=== PATIENT | male | born 1975 | race Two or more races ===

== ENCOUNTER 2018-04-24 18:47 | Emergency (ER) | payer SELFPAY ==
[~2018-04-24] VITALS: Ht 154.9 cm; Wt 90.9 kg
[2018-04-24 18:57] VITALS: BP 122/81
== END 2018-04-24 19:22 | disposition home or self-care (01) ==
LOC: ED 19:16
DX: L73.9 Follicular disorder, unspecified (principal)
CPT/HCPCS: 99283